=== PATIENT | female | born 1990 | race Two or more races ===

== ENCOUNTER 2025-07-06 16:22 | Emergency (ER) | payer MEDICAID ==
[~2025-07-06] VITALS: Ht 162.6 cm; Wt 62.6 kg
[2025-07-06] MEDS ORDERED: MECLIZINE HCL 25 MG TABLET ONE (17:17)
[2025-07-06] MEDS: MECLIZINE HCL 25 MG TABLET PO ONE (17:18)
[2025-07-06 18:04] LABS: APPEARANCE,URINE CLEAR (CLEAR); BLOOD, URINE Large Ery/uL (NEGATIVE); LEUKOCYTE ESTERASE ,URINE Negative (NEGATIVE); NITRITE, URINE NEGATIVE (NEGATIVE); UGLUCOSE Negative (NEGATIVE)
[2025-07-06 18:06] LABS: ADD URINE CULTURE NO; PREGNANCY TEST URINE QUAL NEGATIVE (NEGATIVE); SQUAMOUS EPITHELIAL CELL,UR Few /HPF (None Seen)
[2025-07-06 18:17] LABS: PLATELET COUNT (AUTO) 348 K/uL (150-450); RED BLOOD CELL COUNT(AUTO) 4.38 MIL/uL (4.0-5.2); RED CELL DISTRIBUTION WIDTH 12.5 % (11.5-15.0); WHITE BLOOD COUNT (AUTO) 11.3 K/uL (4.3-11.0)
[2025-07-06] MEDS: IV NS 0.9% 1,000 ML BAG IV ONE (18:20)
[2025-07-06 18:24] LABS: CALCIUM, SERUM 8.4 mg/dL (8.5-10.1); CREATININE 0.5 mg/dL (0.6-1.3); SODIUM SERUM 138.0 mmol/L (136-145); UREA NITROGEN, BLOOD 11.0 mg/dL (7-18)
[2025-07-06] MEDS ORDERED: MECL-159 PO (18:52)
[2025-07-06] MEDS ORDERED: IBUP-1490 PO (18:52)
[2025-07-06 19:29] VITALS: BP 112/75; TEMP 98.1; O2SAT 97
== END 2025-07-06 19:30 | disposition home or self-care (01) ==
LOC: ER 16:25
DX: R51.9 Headache, unspecified (principal); Z88.0 Allergy status to penicillin
CPT/HCPCS: 99285; 96360; 93005; 85025; 80048; 84703; 81001; 36415; J8597; J7030

== ENCOUNTER 2025-09-03 03:00 | Emergency (ER) | payer MEDICAID ==
[~2025-09-03] VITALS: Ht 170.2 cm; Wt 61.7 kg
[~2025-09-03 03:00] MED LIST: IBUP-1490 PO; MECL-159 PO
[2025-09-03 04:05] LABS: PLATELET COUNT (AUTO) 356 K/uL (150-450); RED BLOOD CELL COUNT(AUTO) 4.60 MIL/uL (4.0-5.2); RED CELL DISTRIBUTION WIDTH 12.7 % (11.5-15.0); WHITE BLOOD COUNT (AUTO) 9.8 K/uL (4.3-11.0)
[2025-09-03 04:11] LABS: CALCIUM, SERUM 8.2 mg/dL (8.5-10.1); CREATININE 0.6 mg/dL (0.6-1.3); SODIUM SERUM 138 mmol/L (136-145); UREA NITROGEN, BLOOD 9 mg/dL (7-18)
[2025-09-03] MEDS ORDERED: ALBUTEROL FS 2.5 MG/0.5 ML VIAL.NEB NEB ONE (05:00)
[2025-09-03] MEDS ORDERED: CYCLOBENZAPRINE 10 MG TABLET ONE (05:22)
[2025-09-03] MEDS ORDERED: KETOROLAC TROMETHAMINE 15 MG/ML VIAL ONE (05:22)
[2025-09-03] MEDS ORDERED: ACETAMINOPHEN ES 500 MG TABLET ONE (05:22)
[2025-09-03] MEDS: KETOROLAC TROMETHAMINE 15 MG/ML VIAL IV ONE (05:27)
[2025-09-03] MEDS: CYCLOBENZAPRINE 10 MG TABLET PO ONE (05:27)
[2025-09-03] MEDS: ACETAMINOPHEN 325 MG TABLET PO ONE (05:28)
[2025-09-03 05:53] VITALS: BP 124/76; TEMP 98.2; O2SAT 98
== END 2025-09-03 05:53 | disposition home or self-care (01) ==
LOC: ER 03:10
DX: R07.89 Other chest pain (principal); F41.9 Anxiety disorder, unspecified; M54.2 Cervicalgia; M79.605 Pain in left leg; Z88.0 Allergy status to penicillin
CPT/HCPCS: 99285; 71045; 93005 ×3; 85025; 80048; 36415; 84484; 84702; J1885